=== PATIENT | female | born 1950 | race Caucasian/White ===

== ENCOUNTER 2018-10-29 08:25 | Emergency (ER) | payer OTHER ==
[~2018-10-29] VITALS: Ht 154.9 cm; Wt 73.0 kg
[2018-10-29] MEDS ORDERED: ASPIRIN 81 MG TABLET CHEW ONE (08:52)
[2018-10-29] MEDS ORDERED: ASPIRIN 81 MG TABLET CHEW PO ONE (09:00)
[2018-10-29] MEDS ORDERED: SODIUM CHLORIDE FLUSH 10ML SYR IVF ONE (09:00)
--- NOTE | 2018-10-29 09:00 | NUR ---
ASSUMED CARE. DAUGHTER AT BEDSIDE. LABS DRAWN WITH IV START
[2018-10-29 09:43] LABS: ALBUMIN 3.8 g/dL (3.4-5.0); ANION GAP 4 mmol/L (5-15); CALCIUM 8.7 mg/dL (8.5-10.1); CHLORIDE 109 mmol/L (98-107)
[2018-10-29 09:47] LABS: BASOPHILS # (AUTO) 0.04 x10^3/uL (0-0.1); BASOPHILS % (AUTO) 1 % (0-1); EOSINOPHILS % (AUTO) 1 % (1-7); LYMPHOCYTES # (AUTO) 1.18 x10^3/uL (1-3.4); LYMPHOCYTES % (AUTO) 17 % (22-44); MD NO; MEAN CORPUSCULAR HEMOGLOBIN 28.2 pg (27.0-34.8); MEAN CORPUSCULAR HGB CONC 33.4 g/dL (32.4-35.8); MEAN CORPUSCULAR VOLUME 84.4 fL (80-100); MONOCYTES # (AUTO) 0.34 x10^3/uL (0.2-0.8); MONOCYTES % (AUTO) 5 % (2-9); NEUTROPHILS # (AUTO) 5.26 x10^3/uL (1.8-6.8); NEUTROPHILS % (AUTO) 76 % (42-75); PLATELET COUNT 242 x10^3/uL (130-400); RED BLOOD COUNT 4.92 x10^6/uL (3.82-5.3); RED CELL DISTRIBUTION WIDTH 14.6 % (9.6-15.2)
[2018-10-29] MEDS ORDERED: METO-93 PO (09:48)
[2018-10-29] MEDS ORDERED: METO200T47 PO ×2 (09:48→09:51)
[2018-10-29 09:51] LABS: ALANINE AMINOTRANSFERASE 35 U/L (12-78); ALKALINE PHOSPHATASE 72 U/L (45-117); BILIRUBIN,TOTAL 0.8 mg/dL (0.2-1.0); CREATININE 0.87 mg/dL (0.55-1.02); TOTAL PROTEIN 7.7 g/dL (6.4-8.2); TROPONIN I < 0.015 ng/mL (0.000-0.045)
[2018-10-29] MEDS ORDERED: ASPI-650 PO (09:51)
[2018-10-29] MEDS ORDERED: CAPT12.52 PO (09:52)
[2018-10-29 09:56] LABS: T4 (THYROXINE) 12.6 mcg/dL (4.8-13.9)
--- NOTE | 2018-10-29 10:00 | NUR ---
CONTINUE TO MONITOR PT WHILE AWAITING DISPO. NO COMPLAINTS.
[2018-10-29 10:54] VITALS: BP 151/82
--- NOTE | 2018-10-29 11:12 | NUR ---
REPORT TO ASAD DURAN
--- NOTE | 2018-10-29 11:18 | NUR ---
Patient/Caregiver given discharge instructions and they have confirmed that they understand the instructions. Patient ambulatory with steady gait. PT [place] SPEAKING ONLY. D/C INST REV WITH DAUGHTER WHO TRANSLATED.
== END 2018-10-29 11:19 | disposition home or self-care (01) ==
LOC: ED 09:20
DX: K44.9 Diaphragmatic hernia without obstruction or gangrene (principal); R55 Syncope and collapse; I10 Essential (primary) hypertension; Z87.891 Personal history of nicotine dependence
CPT/HCPCS: 36415; 71045; 80053; 83735; 84436; 84443; 84484; 85025; 85379; 93005; 99284